=== PATIENT | male | born 1935 | race Caucasian/White ===

== ENCOUNTER → 2017-03-19 | Outpatient (CLI) | payer OTHER, BC ==
[~2017-03-19] MED LIST: ADVIN25050 INH; ALBUAER2 INH; ASPEC81 PO; ATV5 PO; CHOL100010 PO; FINA5TAB PO; FLNIN NAE; HYDR0.5T PO; MGN PO; SNG10 PO
--- NOTE | 2017-03-19 12:19 | DIAGNOSTIC IMAGING REPORT ---
CT OF THE CHEST WITHOUT IV CONTRAST CLINICAL HISTORY: Pulmonary nodule. COMPARISON STUDY: Chest radiograph September 03, 2013. CT DOSE: 232.08 mGycm TECHNIQUE: Axial images of the chest were obtained without IV contrast. Images were reviewed in the axial, sagittal, and coronal planes. IV contrast was not administered for this examination. FINDINGS: No enlarged axillary, mediastinal or hilar lymph nodes are present. The size of the heart is normal. There is no pericardial effusion. There is moderate coronary artery calcification. No pneumothorax or pleural effusion is present. There is mild bronchiectasis. There are multifocal groundglass opacities within the lower lobes with scattered tree-in-bud nodules within the lungs. The central airways are patent. Note is made of an indeterminate 1.3 cm sclerotic focus within the right aspect of the L1 vertebral body. There is a sclerotic focus within the posterior lateral left fourth rib extends for approximately 2.9 cm. Note is made of a 1.1 cm sclerotic focus within the lateral left eighth rib. Upper abdomen is unremarkable on this unenhanced exam. There is no cavitation. IMPRESSION: 1. Multifocal irregular lower lobe airspace opacities with scattered tree-in-bud nodules within the lungs. The findings favor an infectious process such as bronchiolitis or bronchopneumonia. A follow-up chest CT in 6 months is recommended. 2. Mild bronchiectasis. 3. Several indeterminate sclerotic lesions within multiple ribs and the spine, as described above. These can be assessed on subsequent CT to ensure stability. Electronically signed by: Omid Bocanegra M.D. 03/19/2017 12:17 PM Dictated Date/Time: 03/19/2017 10:22 AM
== END | disposition home or self-care (01) ==
LOC: C.CTS 09:49
PROVIDERS: ATTEND Physician Assistant
DX: R91.8 Other nonspecific abnormal finding of lung field (principal)

== ENCOUNTER → 2017-08-18 | Outpatient (CLI) | payer OTHER, BC ==
--- NOTE | 2017-08-18 11:14 | DIAGNOSTIC IMAGING REPORT ---
CT SCAN OF THE CHEST WITHOUT IV CONTRAST CLINICAL HISTORY: Pulmonary nodules. COMPARISON STUDY: Chest CT dated 03/19/2017. TECHNIQUE: CT scan of the thorax was performed from the thoracic inlet to the upper abdomen. Images are reviewed in the axial, sagittal, and coronal planes. IV contrast was not administered for this examination as per the front clinician. A dose lowering technique was utilized adhering to the principles of ALARA. CT DOSE: 203.69 mGycm FINDINGS: Thyroid: There are low-attenuation thyroid nodules seen bilaterally. The largest nodule is present on the left and measures 1.6 cm. Coarse calcifications are noted in both thyroid lobes. Thoracic aorta: There is atherosclerotic calcification of the thoracic aorta, which is normal in caliber and demonstrates bovine variant arch anatomy. Heart: The heart is normal in size and without pericardial effusion. The coronary arteries are densely calcified. Lungs and pleural spaces: Emphysema and apical scarring are similar to previous. The trachea and central airways are clear. Airspace opacities and nodularity in the lower lobes have almost completely resolved from 03/19/2017. There is patchy tree-in-bud nodularity with groundglass opacities seen in the right upper lobe anteriorly which is increased from 03/19/2017 and is typical in appearance for an infectious/inflammatory pneumonitis. Small foci of tree-in-bud nodularity are also seen in the left upper lobe. Subpleural reticulation is seen in the lower lobes with foci of parenchymal scarring at the right lung base. There are scattered calcified granulomas. A trace right pleural effusion is identified. A 7 mm nodular density in the left upper lobe on image #77, and right lower lobe nodular densities measuring up to 6 mm seen on images #175 and #215 are similar to 03/19/2017. Mediastinum: There are mildly enlarged mediastinal lymph nodes. An AP window node on image #131 measures 1.3 cm in short axis. Pretracheal nodes measure up to 11 mm in short axis as seen on image #85. Renuka: Not well assessed without IV contrast. Axillae: There is no axillary lymphadenopathy. Upper abdomen: The partially imaged kidneys are atrophic. Partially visualized upper abdominal viscera is otherwise within normal limits. Skeletal structures: The skeletal structures are osteopenic. 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 Soft tissues: The patient is cachectic. IMPRESSION: 1. 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 This has significantly progressed from 03/19/2017. Correlation the patient's oncological history and serum PSA levels is recommended. 2. Airspace opacities and nodularity seen at the lung bases on 03/19/2017 have largely resolved. 3. There is increasing tree-in-bud nodularity in the right upper lobe with associated ground glass opacities as well as tree-in-bud nodularity in the left upper lobe. This has increased from 03/19/2017 and is most typical in appearance for an infectious/inflammatory pneumonitis. 4. Emphysema and chronic parenchymal changes as above. 5. Trace right pleural effusion. 6. Additional pulmonary nodules measuring up to 7 mm are similar to previous end detailed above. 7. Mildly enlarged mediastinal lymph nodes are nonspecific and similar to previous. Electronically signed by: Jay Davis M.D. 08/18/2017 11:13 AM Dictated Date/Time: 08/18/2017 11:02 AM
== END | disposition home or self-care (01) ==
LOC: C.CTS 10:12
PROVIDERS: ATTEND Physician Assistant
DX: R91.8 Other nonspecific abnormal finding of lung field (principal); J98.4 Other disorders of lung; J43.9 Emphysema, unspecified